=== PATIENT | female | born 2000 | race Caucasian/White ===

== ENCOUNTER 2021-08-25 15:04 | Emergency (ER) | payer BC, SELFPAY ==
[2021-08-25 15:28] VITALS: BP 133/74; PULSE 102; RESP 18; TEMP 36.2; O2SAT 100
[2021-08-25 15:30] VITALS: BP 133/74; PULSE 102; RESP 18; TEMP 36.2; O2SAT 100
--- NOTE | 2021-08-25 15:55 | ED.EAR ---
HPI - Ear Problem General Chief complaint: Ear Stated complaint: Lt Ear Pain Time Seen by Provider: 08/25/21 15:45 Source: patient, RN notes reviewed and old records reviewed Mode of arrival: ambulatory Limitations: no limitations History of Present Illness HPI Narrative: 21 year old female presents to [facility] with complaints of 4 day history of left ear pain and sore throat. Patient states that she called her PCP and they ordered ear drops for her but it has not provided any improvement. Patient reports that she has a runny nose and some drainage, no cough or any shortness of breath,denies any fevers chills or sweats, denies any body aches. Patient states that she has noted some yellowish drainage from her left ear and her hearing is decreased. Patient has had COVID vaccinations. MD Complaint: ear pain and ear discharge Location: left ear Duration: constant Discharge from ear: Reports yes - purulent (yellowish) Associated symptoms ear: decreased hearing, rhinorrhea and other (sore throat) Treatment prior to arrival: eardrops Related Data Home Medications Medication Instructions Recorded Confirmed ciprofloxacin-dexamethasone 4 drp EACH EAR Q12H 08/25/21 08/25/21 [Ciprodex] Allergies Allergy/AdvReac Type Severity Reaction Status Date / Time erythromycin base Allergy Unknown Verified 08/25/21 15:29 Sulfa (Sulfonamide Allergy Unknown Verified 08/25/21 15:29 Antibiotics) Review of Systems Review of Systems: CONSTITUTIONAL: Denies fever, chills, or sweats. EYES: Denies visual changes, redness, or discharge. ENT: Positive for rhinorrhea, congestion, sore throat, left otalgia. CARDIOVASCULAR: Denies chest pain, palpitations, or edema. RESPIRATORY: Denies cough or dyspnea. GASTROINTESTINAL: Denies abdominal pain, nausea, vomiting, or diarrhea. GENITOURINARY: Denies dysuria or hematuria. SKIN: Denies rash or itching. MUSCULOSKELETAL: Denies back pain, joint pain, or myalgia. NEUROLOGIC: Denies headache, numbness, or weakness. PSYCHIATRIC: Denies anxiety or depression. All systems reviewed & are unremarkable except as noted in HPI and below PMFSH Past Medical History Medical History Ear infection Surgical History Surgical History History of placement of ear tubes History of tympanoplasty of right ear S/P wisdom tooth extraction Social History Social History Smoking status: Never smoker Second hand tobacco smoke exposure: No Alcohol intake: never Comments At time of signature, agree with nursing past medical, surgical, social and family history. There is no relevant family history pertinent to the presenting complaint Exam Narrative: GENERAL: Well-appearing, well-nourished, and in no acute distress. HEAD: Normocephalic, atraumatic. EYES: PERRLA and EOMI. ENT: Nares red with clear rhinorrhea no epistaxis. Mucous membranes moist. TM left ear bulging and red with drainage, Right TM dull without redness or drainage, throat red with no lesions or exudates or tonsil enlargement, post nasal drainage noted. NECK: Supple. no lymphadenopathy CHEST: Clear to auscultation. No respiratory distress.SAO2 100% on room air HEART: Regular rate and rhythm. No murmur heard. Normal peripheral pulses. ABDOMEN: Soft, nontender, nondistended, normal active bowel sounds. EXTREMITIES: Normal range of motion. No edema. SKIN: Warm, dry, no rash. NEURO: No focal deficits. Alert and oriented x3. Course Course Level of Care: Express Care Visit Vital Signs Vital signs: Vital Signs Temperature 36.2 C L 08/25/21 15:28 Pulse Rate 102 H 08/25/21 15:28 Respiratory Rate 18 08/25/21 15:28 Blood Pressure 133/74 08/25/21 15:28 Pulse Oximetry 100 08/25/21 15:28 Temperature 36.2 C L 08/25/21 15:30 Pulse Rate 102 H 08/25/21 15:30 Respiratory Rate
== END 2021-08-25 16:03 | disposition home or self-care (01) ==
PROVIDERS: Emergency Provider Registered Nurse
DX: H65.192 Other acute nonsuppurative otitis media, left ear (principal)
CPT/HCPCS: 99213; G0463

== ENCOUNTER → 2022-03-19 08:47 | Outpatient (CLI) | payer BC, SELFPAY ==
--- NOTE | ~2022-03-19 | US_ITS ---
EXAMINATION: US breast BI limited HISTORY: Palpable lumps in the lower inner quadrant of the breasts. TECHNIQUE: Limited bilateral breast ultrasound FINDINGS: There is a 1.3 x 0.8 cm oval, circumscribed, parallel, hypoechoic mass with posterior acous tic enhancement and no internal vascularity at the 5:00 location 3 cm from the nipple corresponding t o the palpable abnormality of the right breast. There is a 1.0 x 0.5 cm oval, circumscribed, parallel , hypoechoic mass with minimal internal vascularity and no posterior features at the 7:00 location ne ar the areola of the left breast. IMPRESSION: Bilateral breast masses with sonographic features suggestive of fibroadenomas. No targeted bilateral breast ultrasound in six months is recommended. BI-RADS category 3, probably benign findings. Reviewed, dictated and finalized at location A.
== END ==
PROVIDERS: PCP Nurse Practitioner; Visit Provider Nurse Practitioner
DX: N63.20 Unspecified lump in the left breast, unspecified quadrant (principal); N63.10 Unspecified lump in the right breast, unspecified quadrant
CPT/HCPCS: 76642